=== PATIENT | female | born 2000 | race Caucasian/White ===

== ENCOUNTER 2019-05-06 11:02 | Emergency (ER) | payer OTHER ==
[2019-05-06] MEDS ORDERED: NORMAL SALINE 1000 ML 1,000 ML IV ONE ×2 (11:14→13:08)
--- NOTE | 2019-05-06 11:17 | ER Document Report ---
ED Medical Screen (RME) - General Chief Complaint: Dizziness Stated Complaint: DIZZINESS Time Seen by Provider: 05/06/19 11:09 Notes: Patient is a G1, P0 18-year-old female who is 34 weeks who presents to the emergency department with a chief complaint of dizziness and black spots in her vision. Patient called her [employer] and was referred to the emergency department. Her dizziness started yesterday. She states that it was there w hile she was driving, but it went away and is now back this morning. Patient states that she has a small amount of vaginal discharge. Past medical history includes asthma. She denies any difficulty breathing or shortness of breath. Denies any abdominal pain. Exam: Noticeably 34 weeks . I have greeted and performed a rapid initial assessment of this patient. A comprehensive ED assessment and evaluation of the patient, analysis of test results and completion of medical decision making process will be conducted by an additional ED providers. - Related Data Allergies/Adverse Reactions: No Known Allergies Allergy (Verified 05/06/19 11:11) Physical Exam - Vital signs Vitals: Temp Pulse Resp BP Pulse Ox 98.0 F 71 18 108/68 100 05/06/19 11:07 05/06/19 11:07 05/06/19 11:07 05/06/19 11:07 05/06/19 11:07 Course - Vital Signs Vital signs: Temp Pulse Resp BP Pulse Ox 98.0 F 71 18 108/68 100 05/06/19 11:07 05/06/19 11:07 05/06/19 11:07 05/06/19 11:07 05/06/19 11:07
[2019-05-06 11:52] LABS: APPEARANCE,URINE SLIGHTLY-CLOUDY; BILIRUBIN,URINE NEGATIVE (NEGATIVE); COLOR,URINE YELLOW; GLUCOSE, URINE NEGATIVE (NEGATIVE); KETONES,URINE NEGATIVE (NEGATIVE); PROTEIN,URINE 30 mg/dL (NEGATIVE); URINE SPECIFIC GRAVITY 1.016
--- NOTE | 2019-05-06 12:14 | EKG REPORT ---
SEVERITY:- BORDERLINE ECG - SINUS ARRHYTHMIA, RATE 49-73 PROBABLE LEFT ATRIAL ABNORMALITY : Confirmed by: Vidal Greer MD 06-May-2019 12:12:56
[2019-05-06] MEDS ORDERED: ACETAMINOPHEN 325 MG TABLET PO ONE (12:28)
[2019-05-06] MEDS ORDERED: MECLIZINE HCL 25 MG TABLET PO ONE (12:29)
--- NOTE | 2019-05-06 12:39 | ER Document Report ---
ED General - General Chief Complaint: Weakness Stated Complaint: DIZZINESS Time Seen by Provider: 05/06/19 11:09 TRAVEL OUTSIDE OF THE [place] IN LAST 30 DAYS: No - HPI Notes: Patient is a 18-year-old female who is approximately 34 weeks who presents complaining of a mild frontal headache that wraps around to her temples and having some spotty black dots in her vision. Patient states that this is been ongoing since yesterday. Pain does not radiate. She has not had any recent illness. Patient states that she has had headaches in the past and this is not the worst of her life. It did not start as a thunderclap. She has otherwise been eating and drinking without difficulty. She is urinating normally and having normal bowel movements. No vaginal bleeding. Denies drug allergies. Denies any fever, head injury, neck pain, changes in speech/mentation/hearing, URI, sore throat, chest pain, palpitations, syncope, cough, shortness of breath, wheeze, dyspnea, abdominal pain, nausea/vomi ting/diarrhea, urinary retention, dysuria, hematuria, loss of control of bowel or bladder, numbness/tingling, saddle anesthesia, muscle paralysis/weakness, or rash. - Related Data Allergies/Adverse Reactions: No Known Allergies Allergy (Verified 05/06/19 11:11) Past Medical History - Social History Smoking Status: Never Smoker Chew tobacco use (# tins/day): No Frequency of alcohol use: None Drug Abuse: None Family History: Reviewed & Not Pertinent Patient has suicidal ideation: No Patient has homicidal ideation: No Past Surgical History: Reports: Hx Oral Surgery - wisdom teeth. Review of Systems - Review of Systems -: Yes All other systems reviewed and negative Physical Exam - Vital signs Vitals: Temp Pulse Resp BP Pulse Ox 98.0 F 71 18 108/68 100 05/06/19 11:07 05/06/19 11:07 05/06/19 11:07 05/06/19 11:07 05/06/19 11:07 - Notes Notes: PHYSICAL EXAMINATION: GENERAL: Well-appearing, well-nourished and in no acute distress. A&Ox4. Answers questions appropriately. HEAD: Atraumatic, normocephalic. Non-tender. EYES: Pupils equal round and reactive to light, extraocular movements intact, sclera anicteric, conjunctiva are normal. No nystagmus. vis treviño intact. ENT: EAC clear b/l. TM's intact b/l without erythema, fluid, or perforation. Nares patent and without discharge. oropharynx clear without exudates. No tonsilar hypertrophy or erythema. Moist mucous membranes. No sinus tenderness. NECK: Normal range of motion, supple without lymphadenopathy. No rigidity/meningismus. No midline tenderness. LUNGS: Breath sounds clear to auscultation bilaterally and equal. No wheezes rales or rhonchi. HEART: Regular rate and rhythm without murmurs, rubs, gallops. ABDOMEN: Soft, nontender, nondistended abdomen. No guarding, no rebound. Normal bowel sounds present. No CVA tenderness bilaterally. Musculoskeletal: Ext b/l: FROM to passive/active. Strength 5+/5. No deficits noted. No bony tenderness of extremities. Extremities: No cyanosis, clubbing, or edema b/l. Peripheral pulses 2+. Capillary refill less than 2 seconds. NEUROLOGICAL: NIH 0. GCS 15. Cranial nerves grossly intact. Normal speech, normal gait. Normal sensory, motor exams. Reflexes 2+ b/l. PSYCH: Normal mood, normal affect. SKIN: Warm, Dry, normal turgor, no rashes or lesions noted. Course - Re-evaluation Re-evalutation: 05/06/19 15:06 I did review with Dr. Hays who is in agreement with dispo/plan: Patient is an afebrile, well-hydrated, 18-year-old female who presents to the ED with a headache, suspect benign. Pt did have mildly low glucose in the 70's. Vitals are acceptable without any significant tachycardia, tachypnea, or hypoxia. PE is otherwise unremarkable for any focal neurological deficits. NIH 0, GCS 15, cranial nerves grossly intact. Patient has had headaches like this in the past usually once per month. Labs otherwise acceptable. No pelvic pain and heart tones appropriate. No other labs or imaging warranted at this time based on H&P. Patient was given Tylenol and meclizine which resolved her SHEN. Patient states that she is feeling much better and would like to go home. She is nontoxic-appearing and is tolerating p.o. without any difficulties. Low suspicion for any acute glaucoma, temporal arteritis, meningitis, intracranial hemorrhage, ischemic stroke, active labor, or fracture at this time. Patient is aware that this condition can change from initial presentation and that she needs to monitor symptoms closely for any acute changes. Recheck with your PCM/OBGYN in 3-5 days. Return to the ED with any worsening/concerning symptoms otherwise as reviewed in discharge. Patient is in agreement. - Vital Signs Vital signs: Temp Pulse Resp BP Pulse Ox 98.0 F 71 14 108/73 100 05/06/19 11:07 05/06/19 11:07 05/06/19 14:01 05/06/19 14:01 05/06/19 14:01 - Laboratory Result Diagrams: 05/06/19 12:14 05/06/19 12:14 Laboratory results interpreted by me: 05/06/19 05/06/19 11:18 12:14 Sodium 134.7 L BUN 3 L Creatinine 0.49 L Glucose 74 L Alkaline Phosphatase 167 H Urine Protein 30 H Urine Urobilinogen 4.0 H Leukocyte Esterase Rfl TRACE H Discharge - Discharge Clinical Impression: Headache Qualifiers: Headache type: unspecified Headache chronicity pattern: acute headache Intractability: not intractable Qualified Code(s): R51 - Headache Condition: Stable Disposition: HOME, SELF-CARE Additional Instructions: Rest, Ice/cool compress Tylenol as needed Light stretches daily Strength exercises as able Moist heat and massage may help F/u with your PCP in 3-5 days for a recheck Consider consult with ophthalmology Consider consult(s) with Neurology for ongoing/worsening symptoms Return to the ED with any worsening symptoms and/or development of fever, headache, changes in behavior/mentation/vision/speech, chest pain, palpitations, syncope, shortness of breath, trouble breathing, abdominal pain, n/v/d, blood in stool/urine, loss of control of bowel/bladder, urinary retention, muscle weakness/paralysis, saddle anesthesia, numbness/tingling, or other worsening symptoms that are concerning to you. Prescriptions: Meclizine HCl [Antivert 25 mg Tablet] 25 mg PO DAILY #10 tablet Metoclopramide HCl [Reglan] 10 mg PO BID PRN #10 tablet PRN Reason: Referrals: [facility] [Provider Group] - Follow up as needed
[2019-05-06 12:44] LABS: ABSOLUTE LYMPHOCYTES (AUTO) 1.9 10^3/uL (0.5-4.7); ABSOLUTE MONOCYTES (AUTO) 0.5 10^3/uL (0.1-1.4); ABSOLUTE NEUT (AUTO) 5.8 10^3/uL (1.7-8.2); BASOPHILS % (AUTO) 0.2 % (0-2); EOSINOPHILS % (AUTO) 0.6 % (0-6); HEMATOCRIT 36.5 % (36.0-47.0); HEMOGLOBIN 12.6 g/dL (12.0-15.5); MEAN CORPUSCULAR HEMOGLOBIN 29.5 pg (27.0-33.4); MEAN CORPUSCULAR HGB CONC 34.6 g/dL (32.0-36.0); MEAN CORPUSCULAR VOLUME 85 fl (80-97); MONOCYTES % (AUTO) 5.6 % (3-13); PLATELET COUNT 212 10^3/uL (150-450); RED BLOOD COUNT 4.28 10^6/uL (3.72-5.28); RED CELL DISTRIBUTION WIDTH 12.8 % (11.5-14.0); SEGMENTED NEUTROPHILS % (AUTO) 70.6 % (42-78); TOTAL CELLS COUNTED % (AUTO) 100 %; WHITE BLOOD COUNT 8.2 10^3/uL (4.0-10.5)
[2019-05-06 12:58] LABS: ALBUMIN 3.7 g/dL (3.5-5.0); ALKALINE PHOSPHATASE 167 U/L (38-126); ANION GAP 9 (5-19); ASPARTATE AMINO TRANSFERASE 22 U/L (14-36); BILIRUBIN,TOTAL 0.5 mg/dL (0.2-1.3); BLOOD UREA NITROGEN 3 mg/dL (7-20); CARBON DIOXIDE 25 mmol/L (22-30); CHLORIDE 101 mmol/L (98-107); GLUCOSE 74 mg/dL (75-110); POTASSIUM 3.8 mmol/L (3.6-5.0)
[2019-05-06] MEDS ORDERED: DEXTROSE 50%-WATER 25 GM/50 ML DISP.SYRIN IV ONE (12:59)
[2019-05-06 15:15] VITALS: BP 100/69
== END 2019-05-06 15:22 | disposition home or self-care (01) ==
LOC: EDBD → ER 11:02
DX: O26.899 Other specified pregnancy related conditions, unspecified trimester (principal); R51 Headache; H53.8 Other visual disturbances; Z3A.00 Weeks of gestation of pregnancy not specified
CPT/HCPCS: 93005; 36415; 82962; 85025; 80053; 81001; 93010; J3490; J7030; 87086; 96361; 96374; 99284